=== PATIENT | female | born 1990 | race African-American/Black ===

== ENCOUNTER 2018-07-16 00:10 | Emergency (ER) | payer MEDICAID, SELFPAY ==
[2018-07-16 00:12] VITALS: BP 127/87; PULSE 82; RESP 15; TEMP 37.2; O2SAT 100; BMI 42.2
--- NOTE | 2018-07-16 00:25 | EKG12_ITS ---
Test Reason : CP Blood Pressure : / mmHG Vent. Rate : 083 BPM Atrial Rate : 083 BPM P-R Int : 228 ms QRS Dur : 078 ms QT Int : 354 ms P-R-T Axes : 043 004 -08 degrees QTc Int : 415 ms Sinus rhythm with 1st degree A-V block Otherwise normal ECG Confirmed by CHAS WHYTE, THU ([id number]), assignment desk editor PK GARCIA ([id number]) on 07/17/2018 4:37:08 PM Referred By: MAYANK Confirmed By:THU DOHERTY MD
--- NOTE | 2018-07-16 00:26 | RAD_ITS ---
STUDY: X-RAY CHEST REASON FOR EXAM: Female, 28 years old. Epigastric pain, nausea vomiting, cough. TECHNIQUE: PA and lateral views of the chest. The patient shoulders are mildly rotated to the right. COMPARISON: None. FINDINGS: The lungs are clear and expanded. There is no demonstrated pleural abnormality. Normal size heart. Normal mediastinum and lluvia. Normal visualized pulmonary arteries. Normal visualized aortic arch and descending thoracic aorta. Normal visualized thoracic spine. Normal visualized ribs, clavicles, and shoulders. There is no demonstrated abnormality of the visualized soft tissue structures of the upper abdomen. RAD/Chest PA and Lateral IMPRESSION: Normal x-ray examination of the chest. Electronically Signed: Perez England, at 12:20 EST , Service support ,
--- NOTE | 2018-07-16 00:27 | ED.VISSUMM ---
- ER Visit Summary Date of Service: 07/16/18 Chief Complaint: [] Chest burning History of Present Illness: The patient is a 28 F stated she woke tonight from rest to 20 minutes ago with burning in her chest. She does have a history of reflux for last year. She is supposed to take sucralfate daily but does not do that. Sometimes she gets exacerbations of her reflux. She did take her medication tonight prior to coming in. She has had a cough runny nose and sore throat for the last few days as well. She had 3 episodes of emesis tonight after waking up with the burning. She does have hypertension diabetes. No history of heart disease. Physical Examination: Vital signs reviewed General: Well-nourished well-developed Head: Normocephalic atraumatic Eyes: Pupils equal round and reactive to light extraocular movements intact ENT: TMs clear no hemotympanum no trauma Neck: Nontender full range of motion Cardiovascular: Regular rate rhythm no murmurs normal S1-S2 Respiratory: No distress clear to auscultation bilaterally chest nontender Abdomen: Soft nontender nondistended normal bowel sounds no masses Back: Nontender no CVA tenderness Extremities: Nontender active range of motion ?4 extremities no trauma Skin: Normal color no trauma Neuro alert oriented cranial nerves II through XII intact normal strength sensation reflexes Test Results: [] Emergency Department Course and Treatment: [] EKG obtained shows sinus rhythm with a primary heart block. T wave inversion in inferior lead III. No STEMI pattern. Patient given IV fluids and GI cocktail. She is no longer nauseous. Lab work obtained. Chest x-ray obtained. Lab work shows a normal troponin and lipase. Chemistries normal except chloride 108. Hemoglobin is 10.7. Chest x-ray is normal. Patient felt much better after treatment. She will use Mylanta continue sucralfate. I think she just has esophagitis from her vomiting and reflux. Treatment Plan: [] Disposition: [] Impression: [] Gastroesophageal reflux disease with esophagitis Nausea and vomiting This note was generated with [employer] dictation software. It may contain incorrect words, spelling, and punctuation that were not noted in review of the chart prior to signing ED Disposition - Plan for ED Patient: Referrals: Solange De León DO [Primary Care Provider] -
[2018-07-16] MEDS: Mag Hydrox/Al Hydrox/Simeth 30 ML UDC PO (00:42)
[2018-07-16] MEDS: 0.9% Normal Saline 1,000 ML 1000 ML IV (00:42)
[2018-07-16 00:52] LABS: Absolute Neutrophil Count 2.7 X10^3/uL (2.0-7.7); Basophil# 0.03 X10^3/uL; Basophil% 0.6 % (0-1); Eosinophil# 0.09 X10^3/uL; Eosinophils% 1.7 % (0-5); Hematocrit 32.4 % (37-47); Hemoglobin 10.7 g/dl (12.0-15.0); Lymphocyte % 35.1 % (19-41); Mean Corpuscular Hgb 26.8 pg (27.0-32.0); Mean Corpuscular Volume 81.2 fL (81-99); Mean Platelet Vol. 11.5 fl (6.2-12.0); Monocyte# 0.64 X10^3/uL; Monocyte% 11.8 % (0-10); Neutrophil # 2.74 X10^3/uL (2.7-7.7); Neutrophil % 50.6 % (47-70); POSITIVE COUNT NO; POSITIVE DIFFERENTIAL NO; POSITIVE MORPHOLOGY NO; Platelet Count 265 K/mm3 (150-450); RBC Distribution Width CV 16.4 % (11.6-14.6); RBC Distribution Width SD 47.2 fl (35.1-43.9); Red Blood Count 3.99 M/mm3 (4.2-5.4); White Blood Count 5.4 K/mm3 (4.4-11.0)
[2018-07-16 01:04] LABS: Anion Gap 7 (5-15); BUN 16 mg/dL (7-18); Calcium,Total 8.6 mg/dL (8.5-10.1); Chloride 108 mmol/L (98-107); Creatinine, Serum 0.94 mg/dL (0.55-1.02); EST Glomerular Filtration Rate 75 mL/min (>60); Est Glom Filt Rate - Afr Amer 90 mL/min (>60); Estimated Creatinine Clearance 73.05 ml/min; Glucose 89 mg/dL (74-106); Lipase 298 U/L (73-393); Potassium 3.7 mmol/L (3.5-5.1); Sodium Level 138 mmol/L (136-145)
--- NOTE | 2018-07-16 01:11 | ED.DEP ---
ED Disposition - Plan for ED Patient: Disposition: Home or Assisted Living Instructions: What Is GERD? Referrals: Solange De León DO [Primary Care Provider] - Additional Instructions: Use Mylanta to help with the esophagus burning
[2018-07-16 01:14] VITALS: BP 124/81; PULSE 82; RESP 18; O2SAT 100
== END 2018-07-16 01:18 | disposition home or self-care (01) ==
PROVIDERS: Emergency Provider Emergency Medicine; Family Provider Family Medicine; PCP Family Medicine
DX: K21.0 Gastro-esophageal reflux disease with esophagitis (principal); R11.2 Nausea with vomiting, unspecified; E11.9 Type 2 diabetes mellitus without complications; I10 Essential (primary) hypertension; Z79.84 Long term (current) use of oral hypoglycemic drugs; Z79.899 Other long term (current) drug therapy
CPT/HCPCS: 71046; 80048; 83690; 84484; 85025; 93005; 96360; 99285; J7030; A4216

== ENCOUNTER → 2020-04-21 10:17 | Outpatient (CLI) | payer MEDICAID, SELFPAY ==
[2020-04-21 09:03] VITALS: BMI 44.5
== END ==
PROVIDERS: Nurse Practitioner Family; PCP Family Medicine; Referring Provider Physician Assistant; Visit Provider Physician Assistant
DX: Z20.828 Contact with and (suspected) exposure to other viral communicable diseases (principal)
CPT/HCPCS: 87635; U0003

== ENCOUNTER → 2021-03-03 10:10 | Outpatient (CLI) | payer MEDICAID, SELFPAY | PROVIDERS: PCP Family Medicine; Referring Provider Physician Assistant; Visit Provider Physician Assistant | DX: Z11.52 Encounter for screening for COVID-19 (principal) | CPT/HCPCS: 87635; U0005; U0003 ==

== ENCOUNTER 2023-07-17 14:30 | Inpatient (IN) | payer MEDICAID, SELFPAY ==
[2023-07-17] VITALS (73 sets, daily range): BP systolic 98–188; BP diastolic 54–122; PULSE 63–99; RESP 14–18; TEMP 36.1–36.7; O2SAT 85–100; BMI 36.1
[2023-07-17 11:36] LABS: Hematocrit 34.7 % (37-47); Hemoglobin 11.4 g/dL (12.0-15.0); Mean Corp Hgb Conc 32.9 g/dL (32-36); Mean Corpuscular Hgb 28.6 pg (27.0-32.0); Mean Platelet Vol. 12.9 fl (6.2-12.0); Platelet Count 212 K/mm3 (150-450); RBC Distribution Width CV 13.2 % (11.6-14.6); RBC Distribution Width SD 42.1 fl (35.1-43.9); Red Blood Count 3.99 M/mm3 (4.2-5.4); White Blood Count 5.1 K/mm3 (4.4-11.0)
[2023-07-17 11:50] LABS: AST(SGOT) 19 U/L (15-37); Alanine Aminotransfer ALT/SGPT 17 U/L (13-56); Creatinine, Serum 0.73 mg/dL (0.55-1.02); EST Glomerular Filtration Rate 97 mL/min (>60); Est Glom Filt Rate - Afr Amer 117 mL/min (>60); Estimated Creatinine Clearance 117.46 ml/min; Uric Acid 4.3 mg/dL (2.6-6.0)
[2023-07-17 11:57] LABS: Protein, Urine (Random) 12.4 mg/dL (<11.9); Protein:Creat Ratio 161 mg/g CRE (0-200)
[2023-07-17] MEDS: NIFEdipine 10 MG Capsule PO (12:00)
[2023-07-17] MEDS: NIFEdipine 30 MG Tablet PO (12:43)
[2023-07-17] MEDS: Betamethasone/Betamethasone 30 MG/5 ML Vial 12 MG IM (12:44)
[2023-07-17] MEDS: 0.9 % NaCl (Sterile) Posiflush 10 mL IV (12:53)
--- NOTE | 2023-07-17 13:16 | PCM.HP.OB ---
HPI - General HPI Narrative ROSEMARIE ROBERT, is a 33 F who presents from the office with severe range BPs- pt reports has not taken labetalol in over one month bc she ran out- is taking propanalol b/c she thought it would help. pt reports has SANTIAGO but has not taken anything for it. pt reports no visual changes, no RUQ pain. no VB, no LOF, no ctx. Maternal Data Information Final LANETTE Source: US <20 weeks Gestational age: 34.6 PFSH PFSH Medical History (Updated 07/17/23 @ 13:[address] Mi Caraballo MD) COVID-19 Home Medications propranolol 60 mg tablet 60 mg PO PRN PRN Headache 11/01/16 [History Last Taken 07/17/23 08:00 60 mg] famotidine 40 mg tablet (Pepcid) 20 mg PO BID 07/17/23 [History Last Taken 07/17/23 08:00 20 mg] ferrous sulfate 325 mg (65 mg iron) tablet (Feosol) 325 mg PO QODAY 07/17/23 [History Last Taken 07/16/23 08:00 325 mg] labetalol 100 mg tablet 100 mg PO BID 07/17/23 [History Last Taken Unknown] Allergy/AdvReac Type Severity Reaction Status Date / Time No Known Allergies Allergy Verified 07/17/23 10:59 Surgical History (Updated 03/03/21 @ 09:07 by Emmanuelle Peng) H/O gastric sleeve Social History Smoking Status: Never smoker NST FHR Rate Baby A Baseline: 120 Variability:: Moderate Accelerations:: 15 x 15 Decelerations:: None NST Reactive:: Yes FHR Category:: Category I Uterine Activity:: irregular Vital Signs Vital Signs Vital Signs: 07/17/23 11:09 07/17/23 11:09 07/17/23 11:11 Temperature Temperature Source Pulse Rate 75 Blood Pressure 181/101 H 171/107 H BP Systolic 181 171 BP Diastolic 101 107 Pulse Ox 07/17/23 11:11 07/17/23 11:11 07/17/23 11:11 Temperature Temperature Source Pulse Rate 73 76 Blood Pressure BP Systolic BP Diastolic Pulse Ox 94 07/17/23 10:57 07/17/23 10:57 07/17/23 11:37 Temperature 97.8 F Temperature Source Temporal Pulse Rate Blood Pressure 174/112 H BP Systolic 174 BP Diastolic 112 Pulse Ox 07/17/23 11:37 07/17/23 12:08 07/17/23 12:08 Temperature Temperature Source Pulse Rate 70 63 Blood Pressure 176/108 H BP Systolic 176 BP Diastolic 108 Pulse Ox 07/17/23 12:23 07/17/23 12:23 07/17/23 12:37 Temperature Temperature Source Pulse Rate 81 Blood Pressure 137/85 H 145/93 H BP Systolic 137 145 BP Diastolic 85 93 Pulse Ox 07/17/23 12:37 07/17/23 12:57 07/17/23 12:57 Temperature Temperature Source Pulse Rate 75 72 Blood Pressure 171/94 H BP Systolic 171 BP Diastolic 94 Pulse Ox 07/17/23 13:07 07/17/23 13:07 Temperature Temperature Source Pulse Rate 76 Blood Pressure 143/95 H BP Systolic 143 BP Diastolic 95 Pulse Ox Weight Weight: 92.7 kg Body Mass Index (BMI) 36.1 Physical Exam Narrative no RUQ pain. No clonus, +2 DTR Const alert and oriented x3 General Appearance: cooperative HEENT normocephalic GI GI Narrative: Gravid, non tender to palpation. OB / External & Speculum: external exam normal Extremity normal to inspection Skin no rashes or lesions noted Neuro oriented x3 and CN's II-XII intact bilaterally Psych Appearance: grossly normal Labs Labs Labs: Hct 34.7 % (37-47) L Hgb 11.4 g/dL (12.0-15.0) L Group B Strep DNA Pending Assessment & Plan (1) Chronic hypertension with exacerbation during : (2) H/O gastric sleeve: (3) 34 weeks gestation of : PLAN: Plan @ 34.6 weeks- CHTN with exacerbation- severe range pressure 1) PRE E labs- negative 2) Celestone 3) Nifedipine given- Started on Procardia 30xl Daily and Labetalol 200mg BID 4) Magnesium sulfate- 2 severe pressures back to back - Hydralazine protocol initiated 5) GBS culture
[2023-07-17 13:39] LABS: Group B Strep DNA By PCR Negative (Negative); Internal Control PASS; Probe Check PASS; Specimen Processing Control PASS
[2023-07-17] MEDS: hydrALAZINE 20 MG/ML Vial 10 MG IV (13:42)
[2023-07-17] MEDS: Lactated Ringers 1,000 ML 15 ML IV (13:43)
[2023-07-17] MEDS: Magnesium Sulfate 4gm/100mL 4 GM/100 ML IV.SOLN. IV (13:43)
[2023-07-17] MEDS: Magnesium Sulfate 4gm/100mL 2 GM/50 ML IV.SOLN. IV (14:07)
[2023-07-17] MEDS: Acetaminophen 500 MG Tablet 1000 MG PO ×2 (14:17→21:12)
[2023-07-17] MEDS: Magnesium Sulfate 20 GM/500 ML BAG IV (14:21)
[2023-07-17 15:08] LABS: Absolute Lymphocyte Count 1.44 X10^3/uL (0.83-4.51); Absolute Neutrophil Count 4.2 X10^3/uL (2.0-7.7); Basophil# 0.02 X10^3/uL; Basophil% 0.3 % (0-1); Eosinophil# 0.01 X10^3/uL; Eosinophils% 0.2 % (0-5); Hematocrit 37.5 % (37-47); Hemoglobin 12.4 g/dL (12.0-15.0); Lymphocyte # 1.44 X10^3/ul (0.83-4.51); Lymphocyte % 22.6 % (19-41); Mean Corp Hgb Conc 33.1 g/dL (32-36); Mean Corpuscular Hgb 28.8 pg (27.0-32.0); Mean Corpuscular Volume 87.2 fL (81-99); Monocyte# 0.67 X10^3/uL; Monocyte% 10.5 % (0-10); NRBC Flagged by Analyzer 0 % (0-5); Neutrophil % 66.1 % (47-70); POSITIVE MORPHOLOGY YES; Platelet Count 203 K/mm3 (150-450); RBC Distribution Width CV 13.3 % (11.6-14.6); RBC Distribution Width SD 42.5 fl (35.1-43.9); White Blood Count 6.4 K/mm3 (4.4-11.0)
[2023-07-17 15:18] LABS: Differential Indicated SCAN CRITERIA MET
[2023-07-17 15:28] LABS: Differential Comment SCANNED
[2023-07-17] MEDS: Mag Hydrox/Al Hydrox/Simeth 30 ML UDC PO ×2 (16:21→21:01)
[2023-07-17 16:46] LABS: Syphilis Antibodies Non-reactive
--- NOTE | 2023-07-17 19:31 | PN_ITS ---
Progress Note Patient seen at bedside and evaluated. Patient reports improvement in headache. After discussion with maternal- medicine today decision for labor induction due to severe range blood pressures. Blood pressures have now been controlled on Procardia 30 XL p.o. maintenance therapy. Patient did receive hydralazine IV push 10 mg as well as nifedipine 10 mg p.o. x 1. She is currently on magnesium sulfate 2 g maintenance dose after 6 g loading dose. Vaginal exam-cervix is 2 cm dilated 70% effaced -2 station. She did receive 1 dose of Celestone. Plan is to have the patient eat dinner. Will have epidural placed per patient request at midnight and start Pitocin at 1am. Penicillin for GBS prophylaxis for . Patient verbalized understanding of care and plan did not have any further questions. [employer] is made aware. Most recent growth ultrasound from June 26, 2023 shows growth at 15%.
[2023-07-17] MEDS: LACTATED RINGERS 500 ML 999 ML IV (23:34)
[2023-07-18] VITALS (142 sets, daily range): BP systolic 69–153; BP diastolic 37–94; PULSE 58–202; RESP 16–20; TEMP 36.1–37; O2SAT 81–100
[2023-07-18] MEDS: Magnesium Sulfate 20 GM/500 ML BAG IV ×3 (00:22→16:10)
[2023-07-18] MEDS: fentaNYL-bupivacaine (epidural) 100 ML BAG EPIDURAL ×3 (00:31→10:12)
[2023-07-18] MEDS: Penicillin G Pot 5,000,000 UNITS in 0.9% Normal Saline (100mL MB+) 100 ML 150 UNITS IV (00:40)
[2023-07-18] MEDS: Oxytocin 15 Units/NS 250ml 15 UNITS/250 ML IV.SOLN 2 UNITS IV (00:57)
[2023-07-18] MEDS: Mag Hydrox/Al Hydrox/Simeth 30 ML UDC PO ×3 (01:39→13:03)
[2023-07-18] MEDS: LACTATED RINGERS 500 ML 999 ML IV ×2 (03:11→06:32)
--- NOTE | 2023-07-18 03:28 | NURSING ---
around 0245 FOB Rodríguez Canseco came up to secretaries desk and handed the refinery operator helper crude unit pts keys because he didnt want to give them back to her, im not the father, the man in the room dressed as a girl is the father. Rodríguez then began inquiring about a taxi service-wanting to get a ride home. He asked if we (staff) could give him a ride home, and offered to pay. Security was called and asked if a taxi service was currently available. After finding out from security taxi services are currently not available at this time Rodríguez then stated can I start knocking on all of these doors to see if someone could give me a ride? Rodríguez then walked off unit and was lingering outside of unit talking to another one of [place]'s support people. Security called to come to floor, database security administrator talked with Rodríguez. Rodríguez told security he is waiting to get a ride home in the morning. Rodríguez is now waiting in [facility] waiting room until a ride becomes available. Will continue to monitor and update security as needed
[2023-07-18] MEDS: Penicillin G 3,000,000 Units 50 ML 100 UNITS IV (05:04)
--- NOTE | 2023-07-18 08:20 | NURSING ---
Dr. Nur notified that BP low this am so 250cc bolus given, Magnesium stopped, and ephedrine given by anesthesia. Current BP 117/66. Dr. Nur would like to hold procardia and restart magnesium sulfate when able to prevent seizures. Dr. Nur also asked about giving next dose of penicillin d/t to pre-term or stopping. Rapid GBS was negative and pt treated x2 doses. Dr. Nur wanted putaway driver Dr. Peña consulted. RN notified and penicillin to be stopped at this time but may need to be restarted if mother has a fever in labor.
--- NOTE | 2023-07-18 08:35 | PN.OBGYN_ITS ---
Subjective Subjective Patient comfortable with epidural Objective Data Objective Data Vital Signs: Vital Signs Temp Pulse Resp BP Pulse Ox O2 Del Method 98.5 F 97 16 117/66 98 Room Air 07/18/23 07:42 07/18/23 07:42 07/18/23 07:30 07/18/23 07:42 07/18/23 07:42 07/18/23 07:30 Oxygen Delivery Method Room Air Weight: 204 lb 5.896 oz Body Mass Index (BMI) 36.1 Intake & Output: Intake and Output for Last 24 Hours 07/16/23 07/17/23 07/18/23 23:59 23:59 23:59 Intake Total 230 / 230 2197.93 / 2197.93 Output Total 710 / 710 363 / 363 Balance -480 / -480 1834.93 / 1834.93 Lab / Micro Data 07/17/23 12:05 07/17/23 11:20 Labs: Laboratory Results - last 24 hr 07/17/23 11:20: WBC 5.1, RBC 3.99 L, Hgb 11.4 L, Hct 34.7 L, MCV 87.0, MCH 28.6, MCHC 32.9, RDW Std Deviation 42.1, RDW Coeff of Dexter 13.2, Plt Count 212, MPV 12.9 H, Creatinine 0.73, Estim Creat Clear Calc 117.46, Est GFR (MDRD) Af Amer 117, Est GFR (MDRD) Non-Af 97, Uric Acid 4.3, AST 19, ALT 17, U Random Total Protein 12.4 H, Urine Creatinine 77.20, Protein/Creatinin Ratio 161 07/17/23 12:05: WBC 6.4, RBC 4.30, Hgb 12.4, Hct 37.5, MCV 87.2, MCH 28.8, MCHC 33.1, RDW Std Deviation 42.5, RDW Coeff of Dexter 13.3, Plt Count 203, Immature Gran % (Auto) 0.300, Neut % (Auto) 66.1, Lymph % (Auto) 22.6, [place] % (Auto) 10.5 H, Eos % (Auto) 0.2, Baso % (Auto) 0.3, Absolute Neuts (auto) 4.2, Absolute Lymphs (auto) 1.44, Nucleated RBC % 0, Differential Comment SCANNED, Syphilis Total Ab Non-reactive, Group B Strep DNA Negative, Specimen Comment Not Re portable, Blood Type A POSITIVE, Antibody Screen NEGATIVE Physical Exam Narrative: cvx - 3/70/-2, AROM clear fluid. FSE & IUPC placed. NST FHR Rate Baby A Baseline: 120 Variability:: Moderate Accelerations:: 15 x 15 Decelerations:: Variable Uterine Activity:: quiet Assessment & Plan (1) Severe pre-eclampsia affecting childbirth: PLAN: Plan Plan to restart magnesium at 1g/hour as EFM reassuring Will restart pitocin in 30 minutes Internals placed
[2023-07-18] MEDS: Betamethasone/Betamethasone 30 MG/5 ML Vial 12 MG IM (11:51)
[2023-07-18] MEDS: NIFEdipine 10 MG Capsule PO (13:28)
--- NOTE | 2023-07-18 15:42 | EX.PCM.OBRPT ---
Maternal Data Information Final LANETTE: 08/22/23 Gestational age: 35 weeks Vaginal Delivery Maternal Presentation Maternal Presentation: Medically Indicated Induction Medical Reason for Induction: Preeclampsia, eclampsia Operative Information Date of Procedure: 07/18/23 Pre-Operative Diagnosis: Severe preeclampsia Post-Operative Diagnosis: Same Surgery / Procedure Performed: Spontaneous Vaginal Delivery Type of Anesthesia: Epidural Drain: Ace to straight drain Estimated Blood Loss: 300ml Findings Description of Procedure: Patient prepped & draped when C/C/+2. She pushed well to deliver the head. head gently guided to allow delivery of anterior and posterior shoulders. No excess traction placed on head. Body delivered and 3VC clamped & cut in slightly delayed fashion. Placenta delivered with gentle traction and good uterine tone obtained. Presentation: KUSH Amniotic Membrane Rupture Type: Artificial Amniotic Fluid Description: Clear Placental Delivery Description: Expressed Placenta Disposition: [facility] Specimen(s) Removed: Placenta Cord Vessel Description: 3 Vessels Cord Entanglement: Around neck x 1, loose Nuchal Cord Compression: Without compression A Gender: Male (1 minute): 8 (5 minute): 10 Delayed Cord Clamping: Yes Post Vaginal Delivery Medications Given After Delivery: IV Pitocin Episiotomy Description: None Laceration: 1st degree (vaginal - repaired with 3-0 vicryl) Complication Complications: None
[2023-07-18] MEDS: Oxytocin 15 Units/NS 250ml 15 UNITS/250 ML IV.SOLN 83 UNITS IV (16:23)
[2023-07-18] MEDS: SimETHICONE 80 MG Chewable Tablet PO (17:44)
[2023-07-18] MEDS: Acetaminophen 500 MG Tablet 1000 MG PO (21:24)
[2023-07-18] MEDS: Famotidine 20 MG Tablet PO (22:45)
[2023-07-19] VITALS (38 sets, daily range): BP systolic 119–171; BP diastolic 70–103; PULSE 76–245; RESP 16; TEMP 36.1–36.6; O2SAT 75–100
[2023-07-19] MEDS: Magnesium Sulfate 20 GM/500 ML BAG IV ×2 (01:47→11:35)
[2023-07-19] MEDS: Lactated Ringers 1,000 ML 15 ML IV (03:47)
[2023-07-19] MEDS: NIFEdipine 30 MG Tablet PO (06:58)
[2023-07-19] MEDS: Acetaminophen 500 MG Tablet 1000 MG PO ×3 (08:03→23:08)
[2023-07-19] MEDS: Famotidine 20 MG Tablet PO (10:51)
--- NOTE | 2023-07-19 12:31 | PCM.PN.OB ---
Subjective Subjective Pain well controlled, average loochia. Mild SANTIAGO in the am, took tylenol. No visual changes. Objective Data Objective Data Vital Signs: Vital Signs Temp Pulse Resp BP Pulse Ox O2 Del Method 97.4 F L 88 16 138/87 H 93 Room Air 07/19/23 09:39 07/19/23 11:38 07/19/23 11:38 07/19/23 11:38 07/19/23 07:00 07/19/23 06:52 Oxygen Delivery Method Room Air Weight: 92.7 kg Body Mass Index (BMI) 36.1 Intake & Output: Intake and Output for Last 24 Hours 07/17/23 07/18/23 07/19/23 23:59 23:59 23:59 Intake Total 230 / 230 4233.67 / 4233.67 2231.66 / 2231.66 Output Total 710 / 710 2763 / 2763 2860 / 2860 Balance -480 / -480 1470.67 / 1470.67 -628.34 / -628.34 Lab / Micro Data 07/17/23 12:05 07/17/23 11:20 Physical Exam Narrative ext 2+ edema, 2+ dtrs, no clonus Const alert and no apparent distress Narrative: Fundus firm, below umbilicus. Assessment & Plan (1) Severe pre-eclampsia affecting childbirth: PLAN: PPD #1 doing well stop magenesium at 24 hrs after delivery. Cont. antihypertensives doing well (2) (spontaneous vaginal delivery):
[2023-07-19] MEDS: Calcium Carbonate 500 MG Tablet 1000 MG PO (12:42)
[2023-07-20] VITALS (14 sets, daily range): BP systolic 125–169; BP diastolic 72–92; PULSE 63–104; RESP 16–18; TEMP 36.4–37.2; O2SAT 97–100
[2023-07-20] MEDS: NIFEdipine 30 MG Tablet PO (03:36)
[2023-07-20] MEDS: NIFEdipine 10 MG Capsule PO (03:48)
[2023-07-20] MEDS: Acetaminophen 500 MG Tablet 1000 MG PO ×3 (08:48→21:09)
[2023-07-20] MEDS: Calcium Carbonate 500 MG Tablet 1000 MG PO (08:48)
[2023-07-20] MEDS: NIFEdipine 60 MG Tablet PO (10:35)
[2023-07-20] MEDS: MEASLES,MUMPS,RUBELLA VACC/PF 0.5 ML SC (10:45)
[2023-07-20] MEDS: Famotidine 20 MG Tablet PO ×2 (10:51→21:09)
--- NOTE | 2023-07-20 11:19 | PCM.PN.OB ---
Subjective Subjective Denies headache or visual changes today. Feeling very good overall. Did have a headache last night when her blood pressure spiked. Average lochia. Objective Data Objective Data Vital Signs: Vital Signs Temp Pulse Resp BP Pulse Ox O2 Del Method 98.9 F 91 16 135/86 H 100 Room Air 07/20/23 08:52 07/20/23 10:32 07/20/23 08:52 07/20/23 10:33 07/20/23 08:52 07/20/23 08:52 Oxygen Delivery Method Room Air Weight: 92.7 kg Body Mass Index (BMI) 36.1 Intake & Output: Intake and Output for Last 24 Hours 07/18/23 07/19/23 07/20/23 23:59 23:59 23:59 Intake Total 4233.67 / 4233.67 2729.66 / 2729.66 Output Total 2763 / 2763 4135 / 4135 Balance 1470.67 / 1470.67 -1405.34 / -1405.34 Lab / Micro Data 07/17/23 12:05 07/17/23 11:20 Micro: Microbiology 07/17/23 Unknown Genital vaginal Group B Streptococcus Culture - Final Group B Beta Streptococcus is not isolated. Physical Exam Narrative Awake alert, no acute distress. Extremities 1+ edema, 2+ DTRs and no clonus Const alert and no apparent distress Narrative: Fundus firm, below umbilicus. Assessment & Plan (1) (spontaneous vaginal delivery): PLAN: day #2 status post vaginal delivery. complicated by severe preeclampsia superimposed on chronic hypertension. Increase Procardia to 60 mg daily. Monitor blood pressures overnight. Okay to DC IV. is bottlefeeding and doing well in the room with the patient. Likely discharge home patient tomorrow with follow-up in the office. (2) Severe pre-eclampsia affecting childbirth:
--- NOTE | 2023-07-20 15:57 | CASEMGMT ---
Social Work Assessment Labor and Delivery Unit Patient Address: [address] [place] [address] Phone number: [phone] Date of Referral: 07/17/23 Time of Referral:? 1644 Referred By: Solange De León Date of Intervention: ??07/20/23 Time of Intervention:? 1200 Reason for Referral:? partner history of drug abuse Sw completed chart review and acknowledge social work consult due to alleged father of baby having drug use history. Sw presented to bedside and introduced self to mother of baby (RADHA Porter) and a friend who was visiting. Sw asked if MOB wanted sw to come back to complete assessment due to visitor present, MOB stated it was ok to complete assessment at this time. Sw explained reason for sw involvement and pursued with assessment. History obtained from: medical records, MOB Household composition: Currently residing in the family home is MEG, her 14 year old daughter, Michelle and now baby. MOB denies issues or concerns with housing at this time. Patient's parent/guardian status:? ?MOB states that she and FOB met 11 months ago on a dating shauna. MOB states that FOB does not reside with her at this time. MEG reports that she is not sure if she and FOB will remain in a relationship or not. MEG reports that she and FOB have a lot of cultural differences and it may be too much for them to work through, but she wants to continue to give FOB an opportunity. Medical History: ?MEG is 33 year old female who is 2, para 1-now 2 following labor and delivery. MEG received routine care during with [facility]. MEG presented to hospital and proceeded with an induction of labor, and delivered baby on 07.18.23 at 34 weeks gestation via vaginal delivery. Baby boy, named Maxwell, was born weighing 3lb 9oz and his apgars were 8 and 10 at one and five minutes of life, respectfully. MOB states that baby will be followed by Dr. Mayberry for pediatrics. MOB states that she is bottle feeding baby. Educational Status:? MOB states that she has obtained a four year degree, denies issues with reading, learning or comprehension. 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 MOB states that she is augustine to take 12 weeks off of work. Supplies:?? MOB states that she has obtained all necessary baby supplies, including: car seat, safe sleep space, clothes, diapers and wipes. Childcare/Caregiver(s):? MEG states that she will be the primary caregiver to baby along with a babbysitter when necessary. Transportation:??MEG has reliable transportation, no barriers at this time. Programs/Agencies Involved: ???MEG reports that she is connected to [facility]. Children Services/Legal Issues:??? No history of children services involvement. No issues or concerns warranting referral to be made at this time. Behavioral Health Issues: ??Mental Health History: MOB states that she has not been diagnosed with any mental health diagnoses. MOB states that she is not sure if SHAQ has any mental health diagnoses. Upon chart review it indicates that SHAQ has been diagnosed with schizophrenia. ??? Substance Use History: MOB denies substance use prior to and during . MOB states that SHAQ has an issue with alcoholism. ?? Family History:?MOB denies family history of addiction and significant mental health diagnoses. MOB states that she does not know FOB family history. ? Drug Screens: ?NO drug screens observed in chart review. ? Family/Social Stressors:? MOB denies any issues or concerns at this time. Support Systems: MEG states that she has a lot of family and friends who are supportive. Depression/Shaken Baby/Safe Sleeping:? Sw educated MOB on signs and symptoms of baby blues and depression and anxiety. Sw educated MOB on shaken baby prevention and ABCs of safe sleep. MOB expressed understanding. ASSESSMENT:? MOB and baby admitted following labor and delivery of . MOB made and maintained eye contact during completion of psychosocial assessment. MOB expressed understanding of mental health symptoms to be on the lookout for during her journey. MOB not knowing about the expected trajectory of her relationship with FOB. MOB with natural supports in place and everything necessary for baby. PLAN:? MOB and baby to be discharged when medically ready for discharge. ?No other services requested or indicated. Tyrell Cardoza, [employer], [employer]PERVISOR
[2023-07-21 02:19] VITALS: BP 144/102; PULSE 76; RESP 16; TEMP 36.8
[2023-07-21 08:08] VITALS: BP 137/99; PULSE 81; RESP 16; TEMP 37.1; O2SAT 97
[2023-07-21] MEDS: Famotidine 20 MG Tablet PO (08:17)
[2023-07-21] MEDS: Acetaminophen 500 MG Tablet 1000 MG PO (08:17)
[2023-07-21] MEDS: NIFEdipine 60 MG Tablet PO (10:37)
--- NOTE | 2023-07-21 12:26 | PCM.PN.OB ---
Subjective Subjective Doing well. No headache today. Minimal pain. Passing gas and tolerating PO. BPs improved with Procardia. Adding labetalol BID. Objective Data Objective Data Vital Signs: Vital Signs Temp Pulse Resp BP Pulse Ox O2 Del Method 98.7 F 81 16 137/99 H 97 Room Air 07/21/23 08:08 07/21/23 08:08 07/21/23 08:08 07/21/23 08:08 07/21/23 08:08 07/21/23 08:08 Oxygen Delivery Method Room Air Weight: 92.7 kg Body Mass Index (BMI) 36.1 Intake & Output: Intake and Output for Last 24 Hours 07/19/23 07/20/23 07/21/23 23:59 23:59 23:59 Intake Total 2729.66 / 2729.66 Output Total 4135 / 4135 Balance -1405.34 / -1405.34 Lab / Micro Data 07/17/23 12:05 07/17/23 11:20 Micro: Microbiology 07/17/23 Unknown Genital vaginal Group B Streptococcus Culture - Final Group B Beta Streptococcus is not isolated. Physical Exam Narrative No clonus, 1+ edema Const alert and no apparent distress Narrative: Fundus firm, below umbilicus. Assessment & Plan (1) Severe pre-eclampsia affecting childbirth: PLAN: Discharge today with followup on Monday. Also with breast feeding appointment tomorrow. Adding Labetalol. (2) (spontaneous vaginal delivery):
--- NOTE | 2023-07-21 12:34 | DS.PCM_ITS ---
Providers Date of Admission: 07/17/23 Primary Care Physician: Dr. Solange De León DO Reason For Visit: VAGINAL DELIVERY Diagnosis Discharge Diagnosis (1) Severe pre-eclampsia affecting childbirth: Status: Acute Code(s): O14.14 - Severe pre-eclampsia complicating childbirth Plan: Discharge today with followup on Monday. Also with breast feeding appointment tomorrow. Adding Labetalol. (2) (spontaneous vaginal delivery): Status: Acute Code(s): O80 - Encounter for full-term uncomplicated delivery Medications at Discharge Home Medications famotidine 40 mg tablet (Pepcid) 20 mg PO BID 07/17/23 ferrous sulfate 325 mg (65 mg iron) tablet (Feosol) 325 mg PO QODAY 07/17/23 labetalol 100 mg tablet 100 mg PO BID 07/17/23 nifedipine 60 mg tablet,extended release 24 hr 60 mg PO DAILY #30 tabs 07/21/23 Hospital Course Operations None Procedures None Summary of Care Provided Minutes Spent on Discharge: 22 Hospital Course: IOL of labor for severe Pre E admitted on 07/17. Vaginal delivery on 07/17. Was given 24 hours of magnesium post delivery. Otherwise uncomplicated. Discharged home breast feeding and with HTN medications. Follow up in 72 hours. Weight / BMI Weight Weight: 92.7 kg Body Mass Index (BMI) 36.1 ABG / Lab / Microbiology Data 07/17/23 12:05 07/17/23 11:20 Microbiology: Microbiology 07/17/23 Unknown Genital vaginal Group B Streptococcus Culture - Final Group B Beta Streptococcus is not isolated. D/C Instructions Discharge Diet: No restrictions May resume sexual activity in: 6 weeks Call your doctor if your incision/area has: Continuous Slow Oozing, Sudden Incre ased Bleeding, Foul Smelling Discharge and Swelling at the incision site Call your doctor if you observe: Fever of 101 or Higher and Inability to urinate Please Follow Up With: Ayana Mack MD When: Follow up with our office in 1-2 and 6 weeks or as needed. [phone] Meaningful Use Info Meaningful Use Diagnoses (Choose all that apply): None applicable Discharge Plan Admission Admit Date/Time: 07/17/23 14:30 Primary Reason for Your Visit: vaginal delivery Attending Provider: Pilar Nur Primary Care Provider: Solange De León Discharge Orders/Prescriptions Prescriptions: New nifedipine 60 mg Tablet Extended Release 24hr 60 mg PO DAILY Qty: 30 1RF Continued famotidine [Pepcid] 40 mg tablet 20 mg PO BID ferrous sulfate [Feosol] 325 mg (65 mg iron) tablet 325 mg PO QODAY labetalol 100 mg tablet 100 mg PO BID Discontinued propranolol 60 MG tablet 60 mg PO PRN PRN (Reason: Headache) Referrals / Follow Up: Solange De León DO [Primary Care Provider] - Disposition Disposition (needs filled in before D/C Order can be placed): Home, Self Care
[2023-07-21 13:15] VITALS: BP 128/81; PULSE 109; RESP 16; TEMP 36.9; O2SAT 99
== END 2023-07-21 13:50 | disposition home or self-care (01) | DRG 560 ==
LOC: WPOUT 14:34 → WP 14:34
PROVIDERS: Obstetrics & Gynecology; Admitting Provider Obstetrics & Gynecology; PCP Family Medicine; Referring Provider Obstetrics & Gynecology; Visit Provider Obstetrics & Gynecology
DX: O11.4 Pre-existing hypertension with pre-eclampsia, complicating childbirth (principal); Z37.0 Single live birth; O60.14X0 Preterm labor third trimester with preterm delivery third trimester, not applicable or unspecified; O76 Abnormality in fetal heart rate and rhythm complicating labor and delivery; O69.81X0 Labor and delivery complicated by cord around neck, without compression, not applicable or unspecified; O70.0 First degree perineal laceration during delivery; Z3A.35 35 weeks gestation of pregnancy; Z98.84 Bariatric surgery status; Z79.899 Other long term (current) drug therapy; Z63.0 Problems in relationship with spouse or partner; Z86.16 Personal history of COVID-19
CPT/HCPCS: 59025; 59050; 82565; 82570; 84156; 84450; 84460; 84550; 85025; 85027; 86780; 86850; 86900; 86901; 87081; 87653; 99221; J7120; G0378; J0702

== ENCOUNTER 2023-10-06 05:59 | Day surgery (SDC) | payer MEDICAID, SELFPAY ==
--- NOTE | 2023-10-05 10:30 | PCM.HP.BLA ---
History and Physical Date of Admission: 10/06/23 Expand All Collapse All Pre-Op History and Physical HPI: The patient is a 33 year old female presenting for pre-operative visit. She is scheduled for Laparoscopic bilateral salpingectomy , for Desires sterilization on 10/06/23. Procedure discussed along with risks, benefits and complications. Other alternatives discussed for management. Consent form signed? Yes. PAST MEDICAL HISTORY PAST MEDICAL HISTORY Diagnosis Date ? Abnormal Pap smear of cervix ? Anemia during in first trimester 01/06/2023 ? Asthma ? Dysmenorrhea ? Essential hypertension 11/12/2019 ? Irregular menstrual cycle ? Unspecified asthma(493.90) PAST SURGICAL HISTORY PAST SURGICAL HISTORY Procedure Laterality Date ? NONE ? PT ED BARIATRIC AND METABOLIC 01/04/2022 CURRENT MEDICATIONS Current Outpatient Medications Medication Sig Dispense Refill ? labetalol (TRANDATE) 100 mg tablet Take 1 tablet by mouth two times a day. 60 tablet 1 ? NIFEdipine ER (PROCARDIA XL) 60 mg 24 hr tablet Take 1 tablet by mouth every afternoon. 30 tablet 1 ? famotidine (PEPCID) 40 mg tablet Take 1 tablet by mouth every 12 hours. ? multivitamin with minerals (HAIR,SKIN AND NAILS ORAL) Take by mouth. ? Lactobacillus acidophilus (PROBIOTIC ORAL) Take by mouth. ? PNV without Ca-Iron PsCmplx-FA 29 mg iron- 1 mg chew Take 1 tablet by mouth once daily. (Patient not taking: Reported on 08/29/2023) 90 tablet 3 No current facility-administered medications for this visit. ALLERGIES: Patient has no known allergies. PERSONAL HISTORY: SOCIAL HISTORY Social History Tobacco Use ? Smoking status: Never Passive exposure: Never ? Smokeless tobacco: Never Vaping Use ? Vaping Use: Never used Substance Use Topics ? Alcohol use: No ? Drug use: No FAMILY HISTORY: FAMILY HISTORY FAMILY HISTORY Problem Relation Age of Onset ? other (HEART ATTACK [Other]) Father ? Diabetes Sister REVIEW OF SYMPTOMS: negative except as noted above PHYSICAL EXAMINATION: VITALS: Blood pressure 114/72, pulse 69, weight 200 lb (90.7 kg), last menstrual period 11/07/2022, SpO2 100%, not currently . GENERAL: The patient is well nourished, well hydrated in no acute distress. , The patient is oriented to time, place, and person. NECK: full range of motion LUNGS: Clear to auscultation bilaterally. no wheezes, rhonchi or rales HEART: Regular rate and rhythm and Normal heart sounds IMPRESSION: 33yo desires sterilization PLAN: laparoscopic bilateral salpingectomy Pt has been counseled on risks/benefits and alternatives of surgery including but not limited to anesthesia, bleeding, infection, injury to pelvic structures including bowel, bladder, ureters and vessels. Pt wishes to proceed with surgery at this time. Pt understands this is irreversible , does not desire LARC. Pre and post op instructions reviewed I have reviewed and updated past medical and surgical history, medications and allergies Mi Hernandez MD Office Visit on 10/04/2023 Note shared with patient
[2023-10-06] VITALS (7 sets, daily range): BP systolic 116–156; BP diastolic 74–95; PULSE 59–80; RESP 16; TEMP 36.2–37; O2SAT 94–100; BMI 35.6
[2023-10-06] MEDS: Lactated Ringers 1,000 ML 15 ML IV (06:39)
[2023-10-06 06:42] LABS: Hematocrit 25.1 % (37-47); Hemoglobin 7.4 g/dL (12.0-15.0); Mean Corp Hgb Conc 29.5 g/dL (32-36); Mean Corpuscular Hgb 23.8 pg (27.0-32.0); Mean Corpuscular Volume 80.7 fL (81-99); Mean Platelet Vol. 10.8 fl (6.2-12.0); Platelet Count 315 K/mm3 (150-450); RBC Distribution Width CV 16.3 % (11.6-14.6); Red Blood Count 3.11 M/mm3 (4.2-5.4); White Blood Count 3.4 K/mm3 (4.4-11.0)
[2023-10-06 06:46] LABS: Internal QC Validated? YES +Cl - CLEAR BKGD; Pregnancy, Urine Negative Negative
[2023-10-06 06:57] LABS: Partial Thromboplast Time 24.9 Seconds (24.1-36.2); Prothrombin Time (Protime)PT. 13.1 SECONDS (11.7-14.9)
--- NOTE | 2023-10-06 07:30 | FALS_PTH ---
PATIENT: ROSEMARIE ROBERT LOC: [facility] [place] U#:[id number] AGE/SX: 33/F ROOM: RE10/06/[address]: Dr. Mi Caraballo, MDDOB: 1990 BED: DIS: 10/06/2023 SPEC #: [id number] RECD: 10/06/23 10:39 STATUS: MARIAELENA JUAN #: [id number] FREDIS: 10/06/23 07:[address]: Mi Caraballo DEPT: SURGICAL PATHOLOGY RECD BY: Amparo Ocampo ENTERED: 10/06/23 10:57 SP TYPE: FALL TUBES OTHR DR: Dr. Solange De León, DO Tissues: Fallopian tube Procedures: Surgery Specimen Level II HEADER OPERATION: Laparoscopic salpingectomy PRE-OP DIAGNOSIS: Desires sterilization TISSUE SUBMITTED: Bilateral fallopian tubes MICROSCOPIC DIAGNOSIS Right and left fallopian tubes, bilateral salpingectomies: Complete cross-sections of fallopian tubes. One fallopian tube with benign paratubal cyst. AM: 10/09/2023 MICROSCOPIC DESCRIPTION Slides are reviewed. GROSS DESCRIPTION Received in fixative is one container labeled with the patient's name and designated bilateral fallopian tubes. The specimen consists of bilateral fallopian tubes including fimbrial ends measuring 7.5 cm in length and 0.7 cm and 7.0cm in length and 1.0cm in diameter. The fallopian tubes are not identified as right or left. Sections reveal unremarkable cut surfaces. [employer] sections are submitted in two cassettes with each cassette containing one fallopian tube. / SJ: 10/06/2023 TC:5 CPT: 94111 , 79027
[2023-10-06] MEDS: Bupivacaine 0.5% PF 10 ML VIAL (08:14)
--- NOTE | 2023-10-06 08:16 | OP.PCM_ITS ---
Report of Operation Date of Procedure: 10/06/23 Pre-Operative Diagnosis: desires sterilization Post-Operative Diagnosis: same, endometriosis Surgery/Procedure Performed:: Laparoscopic bilateral salplingectomy Description of Surgical Findings:: small amount of blood pelvis upon inspection. endometriosis noted on ovaries, anterior and posterior CDS, pelvic side alexis. No adhesions noted. Surgeon: Mi Caraballo director of grants: lucía vega ms 3 Type of Anesthesia: General and Local Special Medications: 0.5% marcaine Specimen's removed: bilateral fallopian tubes Estimated Blood Loss (mL): 5cc Fluids Replaced: 800cc Description of Procedure: After informed consent was obtained patient was taken to the operating room she was placed in supine position she was given anesthesia. She was then placed in the [facility] stirrups and she was prepped and draped in normal sterile fashion. Bladder was drained prior to the start of procedure. At this time attention was turned to the vaginal portion where weighted speculum placed at posterior fornix vagina single-tooth tenaculum was used to gently grasp the internal the cervix. uterus was gently sounded to approximately 9cm. Uterine manipulator was placed without difficulty. Legs then placed in parallel with the abdomen the tenaculum and the weighted speculum were removed. 2 towel clamps were placed at level of umbilicus. Marcaine was injected infraumbilical and a small incision was made. The 5 mm trocar was placed under direct visualization. CO2 gas was used to insufflate the intra-abdominal cavity. Upon inspection endometriosis noted in pelvic cavity see above description . the uterus tubes and ovaries appeared to be normal. At this time then the LLQ and RLQ ports were placed First Marcaine was injected and small incision was made a knife and the 5 mm trocars were placed. At this time then tubes were traced back to the fimbriated ends. Enseal was used to coagulate and ligate along mesosalpinx bilaterally until tubes removed completely. Good hemostasis was appreciated. At this time procedure was deemed complete successful. The gas was desufflated on from the intra-abdominal cavity. The trochars were removed. Skin was closed using 4-0 Monocryl in a subcutaneous fashion. Dermabond glue was placed. Instrument lap and needle counts were correct ?2. The uterine manipulator was removed. Vaginal sweep was performed it was negative. There were no complications anticipated normal postoperative course for this patient. Grafts/Implants Used: none Procedure Start Time: 07:47 Procedure Stop Time: 08:15 Complications none Admit VTE Documentation VTE Present on Admission: Yes VTE Mechan Device Prophylaxis: SCD's VTE Pharm Prophylaxis ordered?: No Reason prophylaxis not ordered:: Procedure Not Indicated
--- NOTE | 2023-10-06 08:21 | DCINST_ITS ---
Discharge Instructions Diet Discharge Diet: No restrictions Activity May resume sexual activity in: 2 weeks Lifting Restrictions: 20-25 lbs Dressing / Incision Call your doctor if your incision/area has: Continuous Slow Oozing, Sudden Increased Bleeding, Increased Pain/ Swelling, Increased Redness, Foul Smelling Discharge and Swelling at the incision site Call your doctor if you observe: Fever of 101 or Higher, Inability to urinate, Inability to have a bowel movement, Using more than 1 pad per hour and Uncontrolled pain Additional Dressing/Incision Instructions:: You have skin glue over your incision sites, do not pick off. You may shower and let the soap and water run over the incision sites and dab dry. Follow Up Care Please Follow Up With: Mi Caraballo MD When: 1-2 weeks post OP if you need an appointment please call [phone] Test Results: Test results from this visit will be discussed in further detail at your follow- up appointment, if applicable. Discharge Plan Admission Attending Provider: Mi Caraballo Primary Care Provider: Solange De León Instructions Print Language: Kosovan Discharge Orders/Prescriptions Prescriptions: No Action famotidine [Pepcid] 40 mg tablet 20 mg PO BID ferrous sulfate [Feosol] 325 mg (65 mg iron) tablet 325 mg PO TUTH labetalol 100 mg tablet 100 mg PO BID nifedipine 60 mg Tablet Extended Release 24hr 60 mg PO DAILY Qty: 30 1RF zolpidem 10 mg tablet 10 mg PO QHS Referrals / Follow Up: Solange De León DO [Primary Care Provider] - Disposition Disposition (needs filled in before D/C Order can be placed): Home, Self Care
[2023-10-06] MEDS: Acetaminophen 500 MG Tablet 1000 MG PO (09:28)
== END 2023-10-06 10:02 | disposition home or self-care (01) ==
LOC: SDC 06:01 → AC 06:02
PROVIDERS: Anesthesiology; PCP Family Medicine; Referring Provider Obstetrics & Gynecology; Visit Provider Obstetrics & Gynecology
PROC: (CPT 58661; principal; 2023-10-06 07:15)
DX: Z30.2 Encounter for sterilization (principal); N83.8 Other noninflammatory disorders of ovary, fallopian tube and broad ligament; I10 Essential (primary) hypertension; K21.9 Gastro-esophageal reflux disease without esophagitis; Z79.899 Other long term (current) drug therapy; Z86.16 Personal history of COVID-19
CPT/HCPCS: 58661; 00840; 81025; 85027; 85610; 85730; 88302; J7120; C1760; J2405